=== PATIENT | female | born 1995 | race Two or more races ===

== ENCOUNTER 2022-05-31 20:07 | Emergency (ER) | payer SELFPAY ==
[~2022-05-31] VITALS: Ht 165.1 cm; Wt 54.4 kg
[2022-05-31 20:16] VITALS: BP 119/69
--- NOTE | 2022-05-31 21:01 | NUR ---
Patient discharged to home in stable condition. Written and verbal after care instructions given. Patient verbalizes understanding of instruction.
== END 2022-05-31 21:01 | disposition home or self-care (01) ==
LOC: ER 20:36
DX: S50.12XA Contusion of left forearm, initial encounter (principal); M79.632 Pain in left forearm; Z60.2 Problems related to living alone; W22.8XXA Striking against or struck by other objects, initial encounter; Y93.89 Activity, other specified; Y92.89 Other specified places as the place of occurrence of the external cause; Y99.8 Other external cause status

== ENCOUNTER 2022-06-01 17:35 | Emergency (ER) | payer SELFPAY ==
[~2022-06-01] VITALS: Ht 162.6 cm; Wt 68.0 kg
[2022-06-01 18:57] VITALS: BP 135/74
--- NOTE | 2022-06-01 22:30 | NUR ---
urine sent to lab
[2022-06-01 22:43] LABS: BASOPHILS % (AUTO) 0.3 % (0.0-2.0); EOSINOPHILS % (AUTO) 1.7 % (0.0-6.0); HEMATOCRIT 43 % (33-45); HEMOGLOBIN 14.6 g/dL (11.5-14.8); LYMPHOCYTES # (AUTO) 3.1 K/uL (0.8-4.8); LYMPHOCYTES % (AUTO) 29.2 % (20.0-44.0); MEAN CORPUSCULAR HGB CONC 34 g/dl (31.0-36.0); MEAN CORPUSCULAR VOLUME 93 fL (82-100); MONOCYTES # (AUTO) 1.4 K/uL (0.1-1.30); MONOCYTES % (AUTO) 12.7 % (2.0-12.0); NEUTROPHILS % (AUTO) 56.1 % (43.0-81.0); PLATELET COUNT (AUTO) 394 K/uL (150-450); RED BLOOD CELL COUNT(AUTO) 4.65 MIL/uL (4.0-5.2); WHITE BLOOD COUNT (AUTO) 10.7 K/uL (4.3-11.0)
[2022-06-01 22:59] LABS: CALCIUM, SERUM 9.1 mg/dL (8.5-10.1); POTASSIUM 3.5 mmol/L (3.5-5.1)
[2022-06-01 23:35] LABS: THYROID STIMULATING HORMONE 0.588 uIU/mL (0.358-3.74)
[2022-06-02] MEDS ORDERED: HYDR-3895 PO (00:01)
[2022-06-02] MEDS ORDERED: hydrOXYzine PAMOATE 50 MG CAPSULE PO ONE (00:30)
[2022-06-02] MEDS ORDERED: hydrOXYzine 10 MG TABLET ONE (00:34)
== END 2022-06-02 00:42 | disposition home or self-care (01) ==
LOC: ER 17:53
DX: R53.83 Other fatigue (principal); F43.9 Reaction to severe stress, unspecified; Z60.2 Problems related to living alone; Z79.899 Other long term (current) drug therapy
CPT/HCPCS: 99283; 85025; 80048; 84703; 36415; 84443; Q0177 ×2

== ENCOUNTER 2022-10-06 12:04 | Emergency (ER) | payer MEDICAID ==
[~2022-10-06] VITALS: Ht 162.6 cm; Wt 68.0 kg
[~2022-10-06 12:04] MED LIST: HYDR-3895 PO
--- NOTE | 2022-10-06 12:16 | NUR ---
PT WALKED INTO ER C/O BODY PAIN, HEADACHE SINCE YESTERDAY. PT STATES "I AM HAVING ALCOHOL WITHDRAWALS". LAST DRINK WAS " A FEW HOURSE AGO. PT PLACED IN BED, CONNECTED TO MONITOR. PT IS AAOX4. VSS. AWAITING MD ORDERS.
[2022-10-06] MEDS ORDERED: LORAZEPAM 1 MG TABLET ONE (12:25)
[2022-10-06] MEDS ORDERED: IV NS 0.9% 1,000 ML BAG IV ONE (12:30)
[2022-10-06] MEDS ORDERED: LORAZEPAM 1 MG TABLET PO ONE (12:30)
--- NOTE | 2022-10-06 12:30 | NUR ---
ESTABLISHED IV ACCESS, 20G LEFT AC. BLOOD DRAWN AND SENT TO LAB. NS FLUIDS RUNNING.
[2022-10-06 12:52] LABS: BASOPHILS # (AUTO) 0.1 K/uL (0.0-0.2); BASOPHILS % (AUTO) 0.4 % (0.0-2.0); EOSINOPHILS % (AUTO) 0.3 % (0.0-6.0); HEMATOCRIT 47 % (33-45); HEMOGLOBIN 15.7 g/dL (11.5-14.8); LYMPHOCYTES % (AUTO) 20.8 % (20.0-44.0); MEAN CORPUSCULAR HGB CONC 33 g/dl (31.0-36.0); MEAN CORPUSCULAR VOLUME 91 fL (82-100); MONOCYTES # (AUTO) 0.7 K/uL (0.1-1.30); MONOCYTES % (AUTO) 4.8 % (2.0-12.0); NEUTROPHILS # (AUTO) 10.7 K/uL (1.8-8.9); NEUTROPHILS % (AUTO) 73.7 % (43.0-81.0); PLATELET COUNT (AUTO) 493 K/uL (150-450); RED BLOOD CELL COUNT(AUTO) 5.21 MIL/uL (4.0-5.2); WHITE BLOOD COUNT (AUTO) 14.6 K/uL (4.3-11.0)
[2022-10-06 13:06] LABS: CALCIUM, SERUM 8.9 mg/dL (8.5-10.1); CREATININE 0.9 mg/dL (0.6-1.3); POTASSIUM 3.4 mmol/L (3.5-5.1)
--- NOTE | 2022-10-06 13:09 | NUR ---
PT AMBULATED TO THE REST ROOM WITH STEADY GAIT.
[2022-10-06 13:18] LABS: ALBUMIN 4.7 g/dL (3.4-5.0); BILIRUBIN,DIRECT 0.2 mg/dL (0.0-0.2); BILIRUBIN,TOTAL 0.3 mg/dL (0.2-1.0); TOTAL PROTEIN, SERUM 7.9 g/dL (6.4-8.2)
[2022-10-06] MEDS ORDERED: CHLORDIAZEPOXIDE HCL 25 MG CAPSULE PO ONE (16:00)
[2022-10-06] MEDS ORDERED: CHLORDIAZEPOXIDE HCL 25 MG CAPSULE ONE (16:07)
[2022-10-06] MEDS ORDERED: CHLO25CA22 PO ×2 (18:34→18:37)
[2022-10-06] MEDS ORDERED: ONDA4TAB5 PO (18:38)
--- NOTE | 2022-10-06 18:58 | NUR ---
Patient discharged to home in stable condition. Written and verbal after care instructions given. Patient verbalizes understanding of instruction. IV removed. Catheter intact and site benign. Pressure and 4x4 applied to site. No bleeding noted.
[2022-10-06 18:59] VITALS: BP 110/61
== END 2022-10-06 18:59 | disposition home or self-care (01) ==
LOC: ER 12:04
DX: F10.20 Alcohol dependence, uncomplicated (principal); R11.2 Nausea with vomiting, unspecified; Z79.899 Other long term (current) drug therapy; Z60.2 Problems related to living alone; Y90.3 Blood alcohol level of 60-79 mg/100 ml
CPT/HCPCS: 99283; 96360; 85025; 80048; 80076; 36415; 80143; 80320; J7030; G0480

== ENCOUNTER 2022-10-23 12:14 | Inpatient (IN) | payer MEDICAID ==
[~2022-10-23] VITALS: Ht 162.6 cm; Wt 68.0 kg
[~2022-10-23 12:14] MED LIST changes: +CHLO25CA22 PO; +ONDA4TAB5 PO
--- NOTE | 2022-10-23 12:18 | NUR ---
BETH RA39 From Home "Alcohol and took prescribed meds antabuse/librium". Agitated and restless
--- NOTE | 2022-10-23 12:35 | NUR ---
unable to obtain urine at this time. will try again later
--- NOTE | 2022-10-23 12:45 | NUR ---
WELL LOGGING CAPTAIN AT BEDSIDE
[2022-10-23 12:54] LABS: BASOPHILS % (AUTO) 0.2 % (0.0-2.0); EOSINOPHILS % (AUTO) 0.4 % (0.0-6.0); HEMATOCRIT 44 % (33-45); HEMOGLOBIN 14.5 g/dL (11.5-14.8); LYMPHOCYTES # (AUTO) 2.4 K/uL (0.8-4.8); LYMPHOCYTES % (AUTO) 21.1 % (20.0-44.0); MEAN CORPUSCULAR HGB CONC 33 g/dl (31.0-36.0); MEAN CORPUSCULAR VOLUME 90 fL (82-100); MONOCYTES # (AUTO) 1.1 K/uL (0.1-1.30); MONOCYTES % (AUTO) 9.6 % (2.0-12.0); NEUTROPHILS # (AUTO) 7.6 K/uL (1.8-8.9); NEUTROPHILS % (AUTO) 68.7 % (43.0-81.0); PLATELET COUNT (AUTO) 449 K/uL (150-450); RED BLOOD CELL COUNT(AUTO) 4.84 MIL/uL (4.0-5.2); WHITE BLOOD COUNT (AUTO) 11.1 K/uL (4.3-11.0)
[2022-10-23 13:08] LABS: ALANINE AMINOTRANSFERASE 20 U/L (12-78); ALBUMIN 4.1 g/dL (3.4-5.0); ALKALINE PHOSPHATASE 48 U/L (46-116); ASPARTATE AMINOTRANSFERASE 14 U/L (15-37); BILIRUBIN,DIRECT 0.1 mg/dL (0.0-0.2); BILIRUBIN,TOTAL 0.5 mg/dL (0.2-1.0); CALCIUM, SERUM 9.1 mg/dL (8.5-10.1); CARBON DIOXIDE 24 mmol/L (21-32); CHLORIDE 103 mmol/L (98-107); CREATININE 0.9 mg/dL (0.6-1.3); GLUCOSE 110 mg/dL (74-106); POTASSIUM 3.5 mmol/L (3.5-5.1); SODIUM SERUM 136 mmol/L (136-145); TOTAL PROTEIN, SERUM 7.1 g/dL (6.4-8.2); UREA NITROGEN, BLOOD 15 mg/dL (7-18)
[2022-10-23 13:10] LABS: ACETAMINOPHEN < 10 ug/ml (10-30); ALCOHOL, BLOOD < 3 mg/dL (0-0)
--- NOTE | 2022-10-23 14:00 | NUR ---
5150 hold signed by gilmer
[2022-10-23] MEDS ORDERED: DISU500T3 PO (14:12)
[2022-10-23] MEDS ORDERED: BUPR-54 PO (14:12)
[2022-10-23] MEDS ORDERED: VENL150C58 PO (14:12)
--- NOTE | 2022-10-23 14:15 | NUR ---
URINE COLLECTED AND SENT TO LAB
[2022-10-23] MEDS ORDERED: LORAZEPAM INJ 2 MG/ML VIAL ONE (14:53)
[2022-10-23] MEDS ORDERED: LORAZEPAM INJ 2 MG/ML VIAL IV ONE ×2 (15:00)
--- NOTE | 2022-10-23 15:05 | NUR ---
covid swab collected and sent to lab
[2022-10-23 15:55] LABS: BILIRUBIN,URINE NEGATIVE (NEGATIVE); COLOR,URINE YELLOW (YELLOW); LEUKOCYTE ESTERASE ,URINE NEGATIVE (NEGATIVE); NITRITE, URINE NEGATIVE (NEGATIVE); PROTEIN,URINE NEGATIVE (NEGATIVE); UGLUCOSE NEGATIVE (NEGATIVE); UROBILINOGEN,URINE 0.2 EU/dL (0.2)
[2022-10-23 16:27] LABS: BACTERIA,URINE 1+ /HPF (None Seen); SQUAMOUS EPITHELIAL CELL,UR 51-80 /HPF (None Seen); WBC,URINE 0-2 /HPF (0-3)
--- NOTE | 2022-10-23 18:45 | NUR ---
ROOM 323-1 AFTER SHIFT CHANGE
[2022-10-23] MEDS ORDERED: Z GUARD REMEDY 4 OZ OINT TP PRN (19:30)
[2022-10-23] MEDS ORDERED: MAG HYDROX/AL HYDROX/SIMETH 30 ML UDC PO PRN (19:30)
[2022-10-23] MEDS ORDERED: ONDANSETRON HCL/PF 4 MG/2 ML VIAL IVP PRN (19:30)
[2022-10-23] MEDS ORDERED: ACETAMINOPHEN 325 MG TABLET PO PRN (19:30)
[2022-10-23] MEDS ORDERED: MAGNESIUM HYDROXIDE 30 ML UDC PO PRN (19:30)
--- NOTE | 2022-10-23 19:46 | NUR ---
REPORT GIVEN TO LETY RN ROOM 323-1
--- NOTE | 2022-10-23 20:25 | NUR ---
PATIENT TRANSFERED AND ADMITTED TO ROOM 323 PER ACLS PROTOCOL
[2022-10-23 20:30] VITALS: BP 118/76
--- NOTE | 2022-10-23 20:30 | NUR ---
BUSINESS PROPOSAL REPUTILITY ENGINEER NOTES - RECEIVED PATIENT FROM ED AT 2024 VIA GURNEY UNDER THE CARE OF DR. BRUNO WITH DX OF OVERDOSE. PATIENT IS A/O X1, ERRATIC AND A POOR HISTORIAN. RESPIRATION EVEN AND NON-LABORED. NO C/O PAIN OR DISCOMFORT. NO IV ACCESS. PHYSICAL ASSESSMENT DONE AND VITAL SIGNS TAKEN. ORIENTED PATIENT TO UNIT AND STAFF. ALL BELONGINGS ACCOUNTED FOR. MEDICATIONS GIVEN TO PHARMACY. SAFETY PRECAUTIONS IN PLACE: BED LOCKED AND IN LOW POSITION, SIDE RAILS UP X2, CALL LIGHT WITHIN REACH, SITTER PRESENT IN ROOM. WILL CONTINUE PLAN OF CARE.
[2022-10-23] MEDS ORDERED: ZOLPIDEM TARTRATE 5 MG TABLET PO PRN (22:00)
--- NOTE | 2022-10-23 22:30 | NUR ---
PATIENT REQUESTING FOR MELATONIN. I ASKED FOR AMBIEN INSTEAD FROM DR. REGAN SINCE PATIENT IS AGITATED AND WALKING AROUND THE HALLWAY. ORDERED AMBIEN 5MG PO HS. NOTED AND CARRIED OUT.
--- NOTE | 2022-10-23 23:04 | NUR ---
RECEIVED CALL FROM MAURICIO OF POISON CONTROL ASKING FOR UPDATES ABOUT THE PATIENT. INFORMED HER THAT PATIENT DOESN'T HAVE ANY N/V, SEIZURE, TREMORS OR OTHER WITHDRAWAL SYMPTOMS SINCE ADMISSION. BEHAVIOR IS ERRATIC.
[2022-10-24] VITALS: BP 132/87
[2022-10-24] MEDS: IV NS 0.9% 1,000 ML IV PRN ×2 (00:24→12:52)
[2022-10-24 04:00] VITALS: BP 119/84
--- NOTE | 2022-10-24 04:23 | NUR ---
PATIENT STILL ERRATIC AND DID NOT SLEEP. WILL ADMINISTER ATIVAN 0.5MG AND MONITOR FOR ANY ASE.
[2022-10-24] MEDS: LORAZEPAM 1 MG TABLET PO PRN ×2 (04:24→15:02)
[2022-10-24 05:57] LABS: BASOPHILS % (AUTO) 0.5 % (0.0-2.0); EOSINOPHILS % (AUTO) 2.1 % (0.0-6.0); HEMATOCRIT 39 % (33-45); HEMOGLOBIN 13.4 g/dL (11.5-14.8); LYMPHOCYTES # (AUTO) 4.2 K/uL (0.8-4.8); LYMPHOCYTES % (AUTO) 45.8 % (20.0-44.0); MEAN CORPUSCULAR HGB CONC 34 g/dl (31.0-36.0); MEAN CORPUSCULAR VOLUME 90 fL (82-100); MONOCYTES % (AUTO) 10.5 % (2.0-12.0); NEUTROPHILS # (AUTO) 3.8 K/uL (1.8-8.9); NEUTROPHILS % (AUTO) 41.1 % (43.0-81.0); PLATELET COUNT (AUTO) 418 K/uL (150-450); RED BLOOD CELL COUNT(AUTO) 4.36 MIL/uL (4.0-5.2); WHITE BLOOD COUNT (AUTO) 9.2 K/uL (4.3-11.0)
[2022-10-24 06:04] LABS: CALCIUM, SERUM 8.7 mg/dL (8.5-10.1); MAGNESIUM 2.1 mg/dL (1.8-2.4); PHOSPHORUS 4.8 mg/dL (2.5-4.9); POTASSIUM 3.6 mmol/L (3.5-5.1)
--- NOTE | 2022-10-24 06:46 | NUR ---
MS JOVEL CLOSING NOTES - PATIENT AWAKE, ABLE TO VERBALIZE NEEDS. NO ACUTE DISTRESS THROUGHOUT THE NIGHT. NO UNUSUAL BEHAVIOR OBSERVED. NO SOB OR NOTED. AFEBRILE. ALL NEEDS ATTENDED AND ANTICIPATED. SAFETY MEASURES MAINTAINED. WILL ENDORSE TO NEXT SHIFT FOR GARY. Addendum: 10/24/22 at 0646 by January NICOLAS JOVEL INCORRECT PATIENT
--- NOTE | 2022-10-24 06:51 | NUR ---
TRAINING AND DEVELOPMENT HEAD CLOSING NOTES - PATIENT RESTING QUIETLY IN BED. AWAKE THROUGHOUT THE NIGHT. NO CARDIAC OR RESPIRATORY DISTRESS NOTED. AFEBRILE. DENIES PAIN AT THIS TIME. NO N/V, SEIZURE OR WITHDRAWAL SYMPTOMS NOTED. ON TELE MONITOR READING SINUS RHYTHM AT 85 BPM. INSERTED IV ACCESS TO RIGHT HAND #20G WITH NS RUNNING AT 75 ML/HR. INTACT, PATENT AND FLUSHING. ALL DUE MEDS GIVEN AND NEEDS ATTENDED. SAFETY MEASURES MAINTAINED. WILL ENDORSE TO NEXT SHIFT FOR GARY.
--- NOTE | 2022-10-24 07:45 | NUR ---
COMMUNITY ADMINISTRATOR OPENING NOTES: RECEIVED PATIENT ASLEEP, EASILY ROUSED; A/O X1-2, WITH DISORGANIZED THOUGHTS. PER PM RN, PT WAS AWAKE THROUGHOUT THE NIGHT. 1:1 SITTER AT BEDSIDE, DENIES SI/HI AT THE MOMENT. NO S/S OF SOB ON RA, DENIES PAIN AT THIS TIME. TELE MONITOR READS SINUS RHYTHM AT 92 BPM. INSERTED IV ACCESS AT R HAND #20G WITH NS RUNNING AT 75 ML/HR. INTACT, PATENT AND FLUSHING. SAFETY MEASURES MAINTAINED, CALL LIGHT AND TABLE WITHIN EASY REACH, WILL CONT WITH PLAN OF CARE DURING SHIFT.
--- NOTE | 2022-10-24 11:36 | NUR ---
RN NOTES: REFERRED PT TO HI LIFT OPERATOR. CALLED GERONTOLOGY AIDE BECAUSE PT STATES SHE HAS A CHILD CURRENTLY STAYING WITH FRIEND. GERONTOLOGY AIDE STATES SHE WILL CALL CPS FOR CHILD WELLNESS CHECK.
--- NOTE | 2022-10-24 13:00 | NUR ---
RN NOTES: UPON TRANSFER PT VITALS WNL, STABLE ON RA WITH NO S/S OF SOB OR ANY ACUTE DISTRESS. IV ACCESS REMAINED AT R HAND #20 WITH CONTINUES NS @ 75ML/HR. PT TRANSFERRED TO [facility] ROOM 112-2 VIA GURNEY, ASSISTED BY 2 CNAS. BEDSIDE REPORT GIVEN TO BECKA BESS. 3 WEST TELE BOX REMOVED, [facility] TELE BOX PLACED ON PT, MONITOR READS SR= 92 CURRENTLY.
--- NOTE | 2022-10-24 14:30 | NUR ---
ISABEL was informed that pt. stated she has an 8 year old child who is with her friend. ISABEL called pt.'s friend, Corazon Crocker tel: [phone] who confirmed that she has the pt.'s daughter, Miriam Mckenzie (8 years old) and police was aware of this. Friend requested pt. call her when possible. ISABEL Hurtado notified me at 1710
--- NOTE | 2022-10-24 14:36 | NUR ---
pt.'s child: SW was informed that pt. stated she has an 8 year old child who is with her friend. SW called pt.'s friend, Corazon Crocker tel: [phone] who confirmed that she has the pt.'s daughter, Miriam Mckenzie (8 years old) and police was aware of this. Friend requested pt. call her when possible. SW notified [facility] nurse, Kate who expressed understanding.
--- NOTE | 2022-10-24 15:00 | NUR ---
PATIENT REFUSED THE NS 75ML/HR AT 1500, PATIENT ASKED TO WALK IN THE HALLWAY.
--- NOTE | 2022-10-24 15:00 | NUR ---
PATIENT PACING BACK AND FORTH HALLWAY,TALKING TO LOUD AND WANTED TO LEAVE.
--- NOTE | 2022-10-24 15:02 | NUR ---
PRN ATIVAN PO ATIVAN GIVEN.
[2022-10-24] MEDS: DISULFIRAM 500 MG PO SCH (15:45)
--- NOTE | 2022-10-24 16:00 | NUR ---
PATIENT BECAME AGITATED AND SECURITY CALLED BY DEAN, PATIENT'S ROOM CHANGE FROM 112-2 TO 118-2
[2022-10-24] MEDS ORDERED: diphenhydrAMINE HCL 50 MG/ML VIAL IV ONE (16:30)
[2022-10-24] MEDS ORDERED: HALOPERIDOL LACTATE INJ 5 MG/ML VIAL IM ONE (16:30)
--- NOTE | 2022-10-24 16:34 | NUR ---
STILL AGITATED DR. REYES NOTIFIED AND GAVE PRN MEDS. ORDERED.SITTER AT BEDSIDE.
--- NOTE | 2022-10-24 17:56 | NUR ---
I AM PATIENT'S SITTER AT THIS MOMENT AFTER HALDOL IM INJECTION BY CHARGE NURSE DEAN, PATIENT CALMED DOWN AND SLEEPING IN BED NO S/S OF DISTRESS.
--- NOTE | 2022-10-24 19:00 | NUR ---
RN CLOSING NOTE PATIENT A/O X2-3 CONFUSED, ON ROOM AIR O2 SAT 100%. BRP AMB WITH ASSIST, RIGHT HAND G#20 NS 75 ML/HR. INTACT AND FLUSHING. PATIENT WAS AGITATED AND COMBATIVE AT 1620 IM HALDOL WAS ADMINISTERED PATIENT NOW IS SLEEPING AND WILL ENDORSE HER TO THE DOCUMENTATION SPECIALIST NURSE FOR GARY. ALL SAFETY PRECAUTION IMPLEMENTED. PATIENT HAD A SITTER SINCE 1200 AND FROM 1445 I BECAME HER SITTER TILL 1900.
--- NOTE | 2022-10-24 19:50 | NUR ---
CONTINUOUS IMPROVEMENT CONSULTANT OPENING NOTES RECEIVED PATIENT IN BED SLEEPING. A/O X 2-3 CONFUSED. ON ROOM AIR, BREATHING EVEN AND UNLABORED. PATIENT HAS BRP AMB WITH ASSIST. IV ACCESS RIGHT HAND G#20. PATIENT REFUSED TO CONTINUE IV FLUID. WILL MAINTAIN SAFETY MEASURES WITH BED IN LOWEST AND LOCKED POSITION. BED ALARM ON. CALL LIGHT WITHIN EASY REACH. PATIENT HAS A SITTER. WILL CONTINUE WITH THE PLAN OF CARE.
[2022-10-24 20:00] VITALS: BP 119/84
[2022-10-25] VITALS: BP 119/84
[2022-10-25 04:00] VITALS: BP 119/84
--- NOTE | 2022-10-25 07:15 | NUR ---
TELE EGG TESTER OPENING NOTES RECEIVED PATIENT IN BED SLEEPING. A/O X 2-3 CONFUSED. ON ROOM AIR, BREATHING EVEN AND UNLABORED. PATIENT HAS BRP AMB WITH ASSIST. IV ACCESS RIGHT HAND G#20 RUNNING NS @ 75 ML/HR. SAFETY MEASURES WILL BE MAINTAINED THROUGHOUT THE SHIFT. PATIENT HAS A SITTER. WILL CONTINUE TO MONITOR.
--- NOTE | 2022-10-25 07:30 | NUR ---
WINDOWS PHONE DEVELOPER CLOSING NOTES PATIENT IN BED SLEEPING. A/O X 2-3 CONFUSED. ON ROOM AIR, BREATHING EVEN AND UNLABORED. PATIENT HAS BRP AMB WITH ASSIST. IV ACCESS RIGHT HAND G#20 RUNNING NS @ 75 ML/HR. SAFETY MEASURES MAINTAINED THROUGHOUT THE SHIFT. PATIENT HAS A SITTER. WILL ENDORSE TO THE NEXT SHIFT.
[2022-10-25] MEDS: VENLAFAXINE XR 150 MG CAP.SR.24H PO SCH (09:00)
[2022-10-25] MEDS ORDERED: BUPROPION XL 150 MG TAB.ER.24 PO SCH ×2 (09:00)
[2022-10-25] MEDS: DISULFIRAM 500 MG PO SCH (09:00)
--- NOTE | 2022-10-25 09:05 | NUR ---
PLYCOR OPERATOR NOTE PATIENT REFUSED MEDS. ATTEMPTED TO WAKE UP PATIENT 3 TIMES NO SUCCESS. PATIENT KEPT MOVING TO OPPOSITE SIDE.
[2022-10-25 12:00] VITALS: BP 118/71
[2022-10-25 16:00] VITALS: BP 122/54
--- NOTE | 2022-10-25 18:27 | NUR ---
TELE ASSISTANT ANALYST OPENING NOTES PATIENT IN BED SLEEPING. A/O X 2-3 CONFUSED. ON ROOM AIR, BREATHING EVEN AND UNLABORED. PATIENT HAS BRP AMB WITH ASSIST. IV ACCESS RIGHT HAND G#20 RUNNING NS @ 75 ML/HR. SAFETY MEASURES MAINTAINED THROUGHOUT THE SHIFT. PATIENT HAS A SITTER. WILL ENDORSE TO NIGHTSHIFT NURSE. Addendum: 10/25/22 at 1913 by KERRY ANTONIO RN CLOSING
[2022-10-25] MEDS ORDERED: OLANZAPINE 10 MG VIAL IM ONE (19:00)
[2022-10-25] MEDS ORDERED: LORAZEPAM INJ 2 MG/ML VIAL IM PRN (19:00)
--- NOTE | 2022-10-25 19:10 | NUR ---
POTTERY MACHINE OPERATOR NOTE PATIENT ATTEMPTED TO LEAVE FACILITY. ADVISED PATIENT THAT SHE IS ON A HOLD AND NOT ABLE TO LEAVE. PATIENT STATED THE HOLD DID NOT APPLY TO HER. INFORMED SECURITY AND CHARGE NURSE. PATIENT WAS STILL TRYING TO LEAVE FACILITY. CONTACTED DR. VORA AND INFORMED OF PATIENTS ACTIONS. DR. VORA ORDERED ZYPREXA 10MG AND 1MG ATIVAN IM ONE TIME. NOTIFIED CHARGE NURSE. MEDICATION ADMINISTERED TO PATIENT. PATIENT IS NOW IN HER ROOM LAYING DOWN. PATIENT IS STABLE AND CALM. WILL ENDORSE TO SITTER & SINGLE CORNER CUTTER NURSE. NO FURTHER ACTION TAKEN.
--- NOTE | 2022-10-25 19:59 | NUR ---
OPENING NOTE PATIENT IN HER ROOM LAYING DOWN. PATIENT IS STABLE AND CALM. SITTER AT BEDSIDE. NO DISTRESS REPORTED. BREATHING EVEN AND UNLABORED. SITTER AT BEDSIDE. SAFETY MEASURES IN PLACE. HOB ELEVATED FOR SAFETY.
[2022-10-25 21:27] VITALS: BP 121/69
[2022-10-26 00:17] VITALS: BP 103/55
[2022-10-26 04:37] VITALS: BP 111/67
--- NOTE | 2022-10-26 06:30 | NUR ---
RN CLOSING NOTE PATIENT IN HER ROOM LAYING DOWN. PATIENT IS STABLE AND CALM. SITTER AT BEDSIDE. NO DISTRESS REPORTED. BREATHING EVEN AND UNLABORED. SITTER AT BEDSIDE. SAFETY MEASURES IN PLACE. HOB ELEVATED FOR SAFETY. WILL ENDORSE CARE TO DAY SHIFT NURSE.
--- NOTE | 2022-10-26 07:20 | NUR ---
PRINCIPAL ARCHAEOLOGIST OPEN NOTE: PATIENT IS AWAKE, ALERT AND ORIENTED X3. UNLABORED BREATHING AT ROOM AIR. IV ON RIGHT HAND WITH NO S/S OF COMPLICATIONS. ONE TO ONE SITTER AT SIDE. DENIES PAIN OR DISCOMFORT. DENIES SI, HI. DRIFT MINER ON SINS RHYTHM 94. HOB ELEVATED, BED IN LOW POSITION, EXIT ALARM ON. CALL LIGHT IN REACH. BILATERAL HALF SIDE RAILS UP X2.
[2022-10-26 08:00] VITALS: BP 93/51
[2022-10-26] MEDS: VENLAFAXINE XR 150 MG CAP.SR.24H PO SCH (09:15)
[2022-10-26] MEDS: DISULFIRAM 500 MG PO SCH (09:16)
[2022-10-26] MEDS ORDERED: OLANZAPINE 2.5 MG TABLET PO SCH (10:30)
[2022-10-26] MEDS: IV NS 0.9% 1,000 ML IV PRN (10:47)
--- NOTE | 2022-10-26 11:25 | NUR ---
RESIDENT REQUESTING TO GO HOME. SPOKE TO PATIENT HER HOLD WILL AT 1215 PER PSYCHIATRIST WILL ALLOW IT TO , BUT PRIMARY MD WILL BE NOTIFIED OF HER REQUEST.
--- NOTE | 2022-10-26 11:28 | NUR ---
DOCTOR DAMION CHIANG INFORMED OF RESIDENT REQUEST TO GO HOME AND PSYCHIATRIST TO ALLOW HOLD TO AT 1215.
--- NOTE | 2022-10-26 11:32 | NUR ---
PER DOCTOR BRUNO PATIENT CAN GO HOME, PATIENT WAS ON A PSYCH HOLD NOT ON A MEDICAL HOLD, PER DOCTOR BRUNO CAN GO HOME.
--- NOTE | 2022-10-26 11:35 | NUR ---
ASKED PATIENT HOW SHE WILL GO HOME, PATIENT STATED "I WILL GO HOME WALKING, I LIVE CLOSE BY, I WILL ASK MY FRIEND SPENCER TO PICK ME UP.". PATIENT INFORMED HER HOLD WILL AT 1215PM. PATIENT DENIES SI, DENIES HI.
[2022-10-26] MEDS ORDERED: Olanzapine PO (11:43)
[2022-10-26] MEDS ORDERED: OLAN2.5T3 PO (11:43)
[2022-10-26 12:00] VITALS: BP 124/71
--- NOTE | 2022-10-26 15:08 | NUR ---
RESIDENT IS ALERT AND ORIENTED TIMES 4. SITTER AT SIDE. UNLABORED BREATHING AT ROOM AIR. SKIN IS WARM AND DRY. MOIST ORAL MUCOSA. IVF STOPPED. IV LINE REMOVED. TELE MONITOR REMOVED. SPENCER FRIEND HERE TO BOW TACKER PATIENT. PATIENT GIVEN ALL BELONGINGS AND ID. PATIENT GAVE ADDRESS OF [address] [place] [address] AND HER PHONE NUMBER OF [phone]. HOME MEDS GIVEN TO PATIENT. PATIENT TEACHING ON DISCHARGE INSTRUCTIONS GIVEN AND VERBALIZED UNDERSTANDING. ABLE TO WALK WITH A STEADY GAIT. PATIENT DISCHARGED ORDERED ACCOMPANIED BY FRIEND SPENCER.
== END 2022-10-26 15:19 | disposition home or self-care (01) | DRG 812 ==
LOC: ER 12:19 → TELE 19:54 → TELE1 10-24 12:34
PROVIDERS: ADMIT Internal Medicine; ATTEND Internal Medicine
DX: T42.4X1A Poisoning by benzodiazepines, accidental (unintentional), initial encounter (principal); F19.90 Other psychoactive substance use, unspecified, uncomplicated; T50.6X1A Poisoning by antidotes and chelating agents, accidental (unintentional), initial encounter; T51.0X1A Toxic effect of ethanol, accidental (unintentional), initial encounter; Y92.009 Unspecified place in unspecified non-institutional (private) residence as the place of occurrence of the external cause; F32.9 Major depressive disorder, single episode, unspecified; F41.9 Anxiety disorder, unspecified; Z59.00 Homelessness unspecified; Z20.822 Contact with and (suspected) exposure to COVID-19
CPT/HCPCS: 36415; 80048-TC; 80076-TC; 81001; 83735-TC; 84100-TC; 84703-TC; 85025-TC; 87081-TC; A4223; C9803; G0378; G0480; J1200; J1630; J2060; J3490; J7030

== ENCOUNTER 2022-11-01 10:58 | Emergency (ER) | payer MEDICAID, OTHER ==
[~2022-11-01] VITALS: Ht 162.6 cm; Wt 68.0 kg
[~2022-11-01 10:58] MED LIST changes: -CHLO25CA22 PO; +DISU500T3 PO; -HYDR-3895 PO; +OLAN2.5T3 PO; -ONDA4TAB5 PO; +Olanzapine PO; +VENL150C58 PO
[2022-11-01 11:12] VITALS: BP 127/89
--- NOTE | 2022-11-01 11:21 | NUR ---
PT IN ROOM 6 WITH BLISTERS ALONG THE ARCHES OF THE FEET. SEEN BY MD AWAITING ORDERS.
== END 2022-11-01 11:41 | disposition home or self-care (01) ==
LOC: ER 11:07
DX: S90.822A Blister (nonthermal), left foot, initial encounter (principal); S90.821A Blister (nonthermal), right foot, initial encounter; F10.10 Alcohol abuse, uncomplicated; F41.9 Anxiety disorder, unspecified; F31.9 Bipolar disorder, unspecified; Z60.2 Problems related to living alone; Z79.899 Other long term (current) drug therapy; X58.XXXA Exposure to other specified factors, initial encounter; Y93.89 Activity, other specified; Y92.89 Other specified places as the place of occurrence of the external cause; Y99.8 Other external cause status; Y90.9 Presence of alcohol in blood, level not specified